=== PATIENT | male | born 1960 | race Two or more races ===

== ENCOUNTER 2018-10-21 08:29 | Emergency (ER) | payer MEDICAID, OTHER ==
[~2018-10-21] VITALS: Ht 175.3 cm; Wt 81.6 kg
[2018-10-21 08:55] VITALS: BP 123/90
== END 2018-10-21 10:11 | disposition home or self-care (01) ==
LOC: ER 08:29
DX: E11.9 Type 2 diabetes mellitus without complications (principal); E78.5 Hyperlipidemia, unspecified; I10 Essential (primary) hypertension; K21.9 Gastro-esophageal reflux disease without esophagitis; Z76.0 Encounter for issue of repeat prescription

== ENCOUNTER 2019-03-24 06:35 | Emergency (ER) | payer MEDICAID ==
[~2019-03-24] VITALS: Ht 177.8 cm; Wt 86.2 kg
[2019-03-24 07:29] VITALS: BP 151/87
[2019-03-24] MEDS ORDERED: cefTRIAXone SOD 1,000 MG VL IM ONE (07:45)
== END 2019-03-24 08:21 | disposition home or self-care (01) ==
LOC: ER 06:35
DX: L03.113 Cellulitis of right upper limb (principal); E11.9 Type 2 diabetes mellitus without complications; I10 Essential (primary) hypertension; E78.00 Pure hypercholesterolemia, unspecified; K21.9 Gastro-esophageal reflux disease without esophagitis
CPT/HCPCS: 96372; 99283; J0696